=== PATIENT | male | born 1940 | race Caucasian/White ===

== ENCOUNTER → 2017-05-10 | Outpatient (CLI) | payer MEDICARE, OTHER ==
[2016-02-22 17:20] VITALS: BP 126/52
[~2017-05-10] MED LIST: AMIO200T2 PO; ASPI-630 PO; ATOR20TA58 PO; CARV6.252 PO; CLOP75TA PO; FURO40TA4 PO; GLIM2TAB2 PO; INFL100V IV; LOSA25TA4 PO; MULT1CAP15 PO; PRED1TAB3 PO; PRED5TAB PO; TICA90TA PO
--- NOTE | 2017-05-10 13:21 | CARD ---
APPROVED REPORT EXAM: Two-dimensional and M-mode echocardiogram with Doppler and color Doppler. Other Information Quality : Average Rhythm : NSR INDICATION Cardiomyopathy 2D DIMENSIONS RVDd3.5 (2.9-3.5cm)Left Atrium(2D)3.9 (1.6-4.0cm) IVSd1.1 (0.7-1.1cm)Aortic Root(2D)3.0 (2.0-3.7cm) LVDd4.1 (3.9-5.9cm)LVOT Diameter2.2 (1.8-2.4cm) PWd1.1 (0.7-1.1cm)LVDs3.5 (2.5-4.0cm) FS (%) 18.2 %SV23.9 ml LVEF(%)35.5 (>50%) Aortic Valve AoV Peak José Manuel.108.5cm/sAoV VTI23.1cm AO Peak GR.4.7mmHgLVOT Peak José Manuel.69.4cm/s LVOT VTI 16.17cmAO Mean GR.3mmHg EDILBERTO (VMAX)2.73kd3DPA (VTI)2.77cm2 AI P 1/2 Xssr090zi Mitral Valve MV E Jhemraon84.9cm/sMV DECEL LBIN967fl MV A Ivucuwny79.8cm/sMV E Mean Gr.1mmHg MV QQI596nnE/A Ratio0.5 MV A Bqdkwbky298flAWQ (PHT)2.73cm2 TDI E/Lateral E'6.6E/Medial E'7.5 Pulmonary Valve PV Peak Hbcrlfef146.2cm/sPV Peak Grad.4mmHg RVOT VTI16.9cm Tricuspid Valve TR P. Wtwzfnog945yd/sRAP WILFUJUN6giFl TR Peak Gr.93kyQuAGFY72gaNz LEFT VENTRICLE The left ventricle is normal size. There is normal left ventricular wall thickness. Left ventricle sy stolic function is moderately impaired. The Ejection Fraction is 35-40%. The septal motion is consist ent with prior CABG. Moderate hypokinesis of the basal to mid inferior wall, mid to distal anterior w all and apex. The lateral wall has normal motion. Tissue Doppler imaging reveals mild left ventricula r diastolic dysfunction. There is no ventricular septal defect visualized. RIGHT VENTRICLE The right ventricle is normal size. The right ventricular systolic function is normal. ATRIA The left atrium size is normal. The right atrium size is normal. The interatrial septum is intact wit h no evidence for an atrial septal defect or patent foramen ovale as noted on 2-D or Doppler imaging. AORTIC VALVE The aortic valve is moderately sclerotic. The aortic valve is trileaflet. Doppler and Color Flow reve aled trace to mild aortic regurgitation. There is no significant aortic valvular stenosis. MITRAL VALVE Mitral annular calcification is mild. There is no mitral valve stenosis. Doppler and Color Flow revea led no mitral valve regurgitation noted. TRICUSPID VALVE The tricuspid valve is normal in structure and function. Doppler and Color Flow revealed trace tricus pid regurgitation. The PA pressure was estimated at 22 mmHg. There is no tricuspid valve stenosis. PULMONIC VALVE The pulmonic valve is not well visualized. Doppler and Color Flow revealed no pulmonic valvular regur gitation. There is no pulmonic valvular stenosis. GREAT VESSELS The aortic root is normal in size. Normal pulmonary venous flow (Doppler). The IVC was not well visua lized. PERICARDIAL EFFUSION There is no evidence of significant pericardial effusion. Critical Notification Critical Value: No <Conclusion> Left ventricle systolic function is moderately impaired. The Ejection Fraction is 35-40%. The septal motion is consistent with prior CABG. Moderate hypokinesis of the basal to mid inferior wa ll, mid to distal anterior wall and apex. The lateral wall has normal motion.
== END | disposition home or self-care (01) ==
LOC: ECHO 09:28
PROVIDERS: ATTEND Internal Medicine Cardiovascular Disease
DX: I08.2 Rheumatic disorders of both aortic and tricuspid valves (principal)
CPT/HCPCS: 93306

== ENCOUNTER → 2018-03-08 | Outpatient (CLI) | payer MEDICARE, OTHER | END | disposition home or self-care (01) | LOC: ECHO 09:57 | DX: I25.10 Atherosclerotic heart disease of native coronary artery without angina pectoris (principal); I34.0 Nonrheumatic mitral (valve) insufficiency; I51.7 Cardiomegaly | CPT/HCPCS: 93306 ==

== ENCOUNTER → 2018-03-28 | Outpatient (CLI) | payer MEDICARE, OTHER ==
[2018-03-28] MEDS: IOHEXOL 300 MG/ML 100ML VIAL. IV (08:49)
== END | disposition home or self-care (01) ==
LOC: CT 07:33
DX: I71.4 Abdominal aortic aneurysm, without rupture (principal); I70.202 Unspecified atherosclerosis of native arteries of extremities, left leg; I25.10 Atherosclerotic heart disease of native coronary artery without angina pectoris; E11.9 Type 2 diabetes mellitus without complications; I10 Essential (primary) hypertension
CPT/HCPCS: 71275; 74174; 93017; Q9967

== ENCOUNTER → 2019-03-18 | Outpatient (CLI) | payer MEDICARE, OTHER ==
[2016-02-22 17:20] VITALS: BP 126/52
[~2019-03-18] MED LIST changes: -AMIO200T2 PO; +AMIO200T4 PO; +CARV6.2511 PO; -CARV6.252 PO; -LOSA25TA4 PO; +LOSA25TA54 PO
--- NOTE | 2019-03-18 10:30 | CARD ---
MR#: [id number] Date of Study: 03/18/2019 Ordering Physician: ENA VENTURA, Referring Physician: ENA VENTURA, Tech: Mine Carlson APPROVED REPORT EXAM: Two-dimensional and M-mode echocardiogram with Doppler and color Doppler. Other Information Quality : FairHR: 63bpm INDICATION CAD Surgery/Intervention CABG: RISK FACTORS Hyperlipidemia Diabetes Smoking Previous smoker 2D DIMENSIONS RVDd4.4 (2.9-3.5cm)Left Atrium(2D)4.2 (1.6-4.0cm) IVSd1.5 (0.7-1.1cm)Aortic Root(2D)3.7 (2.0-3.7cm) LVDd4.3 (3.9-5.9cm)LVOT Diameter2.2 (1.8-2.4cm) PWd1.3 (0.7-1.1cm)LVDs3.2 (2.5-4.0cm) FS (%) 25.7 %SV43.3 ml LVEF(%)50.8 (>50%) Aortic Valve AoV Peak José Manuel.147.1cm/sAoV VTI32.5cm AO Peak GR.8.7mmHgLVOT Peak José Manuel.105.2cm/s LVOT VTI 24.77cmAO Mean GR.4mmHg EDILBERTO (VMAX)2.14ft2LYF (VTI)2.96cm2 AI P 1/2 Ejfu662nq Mitral Valve MV E Bibgytrn66.8cm/sMV DECEL AZAN010zz MV A Zsvnxped853.1cm/sMV PIS80pq E/A Ratio0.9MVA (PHT)3.66cm2 TDI E/Lateral E'9.1E/Medial E'14.9 Pulmonary Valve PV Peak Rythqohp787.5cm/sPV Peak Grad.5mmHg Tricuspid Valve TR P. Ccqbvgqm322vi/sRAP HICGIDEQ0gqOp TR Peak Gr.50vzEsNYHF29yuLh Pulmonary Vein S1 Ptxdhmio40.6cm/sD2 Wgttotif13.8cm/s PVa ueadfwky481hxyr LEFT VENTRICLE The left ventricle is normal size. There is mild to moderate concentric left ventricular hypertrophy. Basal inferior wall hypokinesis. The ejection fraction is estimated at 55%. Transmitral Doppler flow pattern is Grade I-abnormal relaxation pattern. RIGHT VENTRICLE The right ventricle is normal size. There is normal right ventricular wall thickness. The right ventr icular systolic function is normal. ATRIA The left atrium is mildly dilated. The right atrium size is normal. The interatrial septum is intact with no evidence for an atrial septal defect or patent foramen ovale as noted on 2-D or Doppler imagi ng. AORTIC VALVE The aortic valve is not well visualized. Doppler and Color Flow revealed mild aortic regurgitation. T here is no significant aortic valvular stenosis. MITRAL VALVE The mitral valve is thickened but opens well. There is no evidence of mitral valve prolapse. There is no mitral valve stenosis. Doppler and Color-flow revealed trace to mild mitral regurgitation. TRICUSPID VALVE The tricuspid valve is not well visualized. Doppler and Color Flow revealed trace tricuspid regurgita tion with an estimated PAP of 25 mmHg. There is no tricuspid valve stenosis. PULMONIC VALVE The pulmonic valve is not well visualized. Doppler and Color Flow revealed no pulmonic valvular regur gitation. GREAT VESSELS The aortic root is normal in size. The IVC is normal in size and collapses >50% with inspiration. PERICARDIAL EFFUSION There is no evidence of significant pericardial effusion. Critical Notification Critical Value: No <Conclusion> Basal inferior wall hypokinesis. The ejection fraction is estimated at 55%. Mild aortic regurgitation. Trace to mild mitral regurgitation. Trace tricuspid regurgitation with an estimated PAP of 25 mmHg. There is no evidence of significant pericardial effusion. Signed by : Flavio Howard, Electronically Approved : 03/18/2019 10:29:56
== END | disposition home or self-care (01) ==
LOC: ECHO 08:40
PROVIDERS: ATTEND Internal Medicine Cardiovascular Disease
DX: I08.0 Rheumatic disorders of both mitral and aortic valves (principal); I25.10 Atherosclerotic heart disease of native coronary artery without angina pectoris; E78.5 Hyperlipidemia, unspecified; E11.9 Type 2 diabetes mellitus without complications; Z87.891 Personal history of nicotine dependence
CPT/HCPCS: 93306

== ENCOUNTER → 2019-04-29 | Outpatient (CLI) | payer MEDICARE, OTHER ==
[2016-02-22 17:20] VITALS: BP 126/52
--- NOTE | 2019-04-29 13:34 | RAD ---
CT of the chest without contrast, 04/29/2019: HISTORY: Cough Noncontrast scans were obtained as requested and compared to a study from 03/28/2018. There are moderate scattered reticular opacities in the periphery of both lungs similar to that seen on the previous study. The findings suggest fibrosis. No pulmonary mass or dense consolidation is seen. There is coarse calcific pleural plaquing posteromedially on the right. A couple of other tiny scattered calcified pleural plaques are seen bilaterally. There is no evidence of pleural fluid. There has been a previous median sternotomy. There is moderate calcific plaquing of the thoracic aorta and its branches. There is no evidence of aortic aneurysm. There are moderate scattered coronary artery calcifications. The heart is at the upper limits of normal in size. There is abundant epicardial fat. There are small scattered mediastinal lymph nodes without evidence of pathologic enlargement. IMPRESSION: 1. Moderate calcific plaquing of the aorta and coronary arteries. 2. Calcific pleural plaquing raising the possibility of previous asbestos exposure. 3. Ongoing peripheral predominantly reticular opacities suggesting fibrosis. PQRS Compliance Statement: One or more of the following individualized dose reduction techniques were utilized for this examination: 1. Automated exposure control 2. Adjustment of the mA and/or kV according to patient size 3. Use of iterative reconstruction technique Electronically signed by: Everardo Walter MD (04/29/2019 1:31 PM) [facility]
== END | disposition home or self-care (01) ==
LOC: CT 09:58
PROVIDERS: ATTEND Internal Medicine Cardiovascular Disease
DX: J92.9 Pleural plaque without asbestos (principal); I70.0 Atherosclerosis of aorta; I25.10 Atherosclerotic heart disease of native coronary artery without angina pectoris; R59.0 Localized enlarged lymph nodes
CPT/HCPCS: 71250

== ENCOUNTER → 2020-05-04 | Outpatient (CLI) | payer MEDICARE, OTHER ==
[2016-02-22 17:20] VITALS: BP 126/52
[~2020-05-04] MED LIST changes: -GLIM2TAB2 PO; +GLIM2TAB7 PO
--- NOTE | 2020-05-04 16:49 | CARD ---
MR#: [id number] Date of Study: 05/04/2020 Ordering Physician: ENA BLANCO, Referring Physician: ENA BLANCO, Tech: Mine Carlson APPROVED REPORT EXAM: Two-dimensional and M-mode echocardiogram with Doppler and color Doppler. Other Information Quality : FairHR: 67bpm Technically limited study due to body habitus. INDICATION Cardiac Disease: CAD Surgery/Intervention CABG: Date: 2014 Stents (2) 2016 RISK FACTORS Hypertension Diabetes 2D DIMENSIONS Left Atrium(2D)4.7 (1.6-4.0cm)IVSd1.7 (0.7-1.1cm) Aortic Root(2D)3.6 (2.0-3.7cm)LVDd5.1 (3.9-5.9cm) LVOT Diameter1.9 (1.8-2.4cm)PWd1.2 (0.7-1.1cm) LVDs3.3 (2.5-4.0cm)FS (%) 35.0 % SV78.4 mlLVEF(%)63.9 (>50%) Aortic Valve AoV Peak José Manuel.164.6cm/sAoV VTI35.5cm AO Peak GR.10.8mmHgLVOT Peak José Manuel.95.3cm/s LVOT VTI 18.13cmAO Mean GR.5mmHg EDILBERTO (VMAX)1.09xk4MJS (VTI)1.46cm2 AI P 1/2 Yvaf033yf Mitral Valve MV E Bglphlou47.4cm/sMV E Peak Gr.121mmHg MV DECEL XPWC608thZM A Ygklpnwf791.8cm/s MV E Mean Gr.3mmHgMV QJN01mc E/A Ratio0.8MVA (PHT)2.74cm2 TDI E/Lateral E'11.9E/Medial E'20.1 Pulmonary Valve PV Peak Dqkanjdh13.1cm/sPV Peak Grad.4mmHg Tricuspid Valve TR P. Flnrdqvd367xw/sRAP ZWSSPNED7ktBg TR Peak Gr.74rlUqAIGF78ljUz Pulmonary Vein S1 Pdnfphoj82.0cm/sD2 Iijyshlt81.1cm/s PVa dtzkpyuy757bowo LEFT VENTRICLE The left ventricle is normal size. There is mild to moderate concentric left ventricular hypertrophy. The left ventricular systolic function is mildly decreased. The Ejection Fraction is 45-50%. There i s mild global hypokinesis. Septal motion suggestive of conduction defect. Transmitral Doppler flow pa ttern is Grade I-abnormal relaxation pattern. RIGHT VENTRICLE The right ventricle is normal size. There is normal right ventricular wall thickness. The right ventr icular systolic function is normal. ATRIA The left atrium is mildly dilated. The right atrium size is normal. The interatrial septum is intact with no evidence for an atrial septal defect or patent foramen ovale as noted on 2-D or Doppler imagi ng. AORTIC VALVE The aortic valve is calcified and not well visualized. Doppler and Color Flow revealed mild aortic re gurgitation. There is no significant aortic valvular stenosis. MITRAL VALVE The mitral valve is thickened but opens well. There is no evidence of mitral valve prolapse. There is no mitral valve stenosis. Doppler and Color-flow revealed trace mitral regurgitation. TRICUSPID VALVE The tricuspid valve is normal in structure and function. Doppler and Color Flow revealed trace tricus pid regurgitation with an estimated PAP of 28 mmHg. There is no tricuspid valve stenosis. PULMONIC VALVE The pulmonic valve is not well visualized. Doppler and Color Flow revealed no pulmonic valvular regur gitation. There is no pulmonic valvular stenosis. GREAT VESSELS The aortic root is normal in size. The IVC is normal in size and collapses >50% with inspiration. PERICARDIAL EFFUSION There is no evidence of significant pericardial effusion. Critical Notification Critical Value: No <Conclusion> The left ventricular systolic function is mildly decreased. The Ejection Fraction is 45-50%. There is mild global hypokinesis. Septal motion suggestive of conduction defect. Doppler and Color Flow revealed mild aortic regurgitation. Doppler and Color Flow revealed trace tricuspid regurgitation with an estimated PAP of 28 mmHg. Signed by : Ena Blanco, Electronically Approved : 05/04/2020 16:49:13
== END | disposition home or self-care (01) ==
LOC: ECHO 09:30
PROVIDERS: ATTEND Internal Medicine Cardiovascular Disease
DX: I11.9 Hypertensive heart disease without heart failure (principal); I35.1 Nonrheumatic aortic (valve) insufficiency; I70.0 Atherosclerosis of aorta; I25.10 Atherosclerotic heart disease of native coronary artery without angina pectoris; E11.8 Type 2 diabetes mellitus with unspecified complications
CPT/HCPCS: 93306

== ENCOUNTER → 2021-05-18 | Outpatient (CLI) | payer MEDICARE, OTHER ==
[2016-02-22 17:20] VITALS: BP 126/52
[~2021-05-18] MED LIST changes: -AMIO200T4 PO; +AMIO200T6 PO; +REGADENOSON 0.4 MG/5 ML DISP.SYRIN. IV ONE
--- NOTE | 2021-05-19 11:11 | RAD ---
MR#: [id number] Date of Study: 05/18/2021 Ordering Physician: ENA BLANCO, Referring Physician: JAYLON PRITCHETT Tech: Aravind Redding RT (R) (N) APPROVED REPORT Test Type: Pharmacological Stress Nurse/Tech: Norma Boss RN Test Indications: CAD Cardiac History: HTN, Cardiac stents, 2015 CABG x3, See EMR. Medications: See EMR. Medical History: DM, X-Smoker=Quit 20yrs, Prostate CA w/ chemo, See EMR. Resting ECG: SR Resting Heart Rate: 71 bpm Resting Blood Pressure: 141/86mmHg Pretest Chest Pain: No chest pain Nurse/Tech Notes Lungs CTA, Heart tones regular. Consent: The procedure was explained to the patient in lay terms. Informed consent was witnessed. Allan eout was entered into [employer]. History and Stress Test performed by TAMANNA [facility]. Details Pharmacologic stress testing was performed using 0.4mg per 5ml of regadenoson given intravenously ove r 7-10 seconds. Stress Symptoms No chest pain or symptoms. POST EXERCISE Reason for Termination: Infusion complete Max HR: 93 bpm Max Blood Pressure: 119/66mmHg Blood Pressure response to exercise: Normal blood pressure response during stress. Heart Rate response to exercise: WNL Chest Pain: No. Arrhythmia: No. ST Change: No. INTERPRETATION Stress EKG Conclusion: No evidence of stress induced EKG changes. Imaging Protocol IMAGE PROTOCOL: Rest Tc-99m/stress Tc-99m 1 day Rest: Stress: Viability: Radiopharm.Tc99m ZkwsjpeqrOz30p Sestamibi Dose10.5mCi 30mCi Duration 15min. 15min. Img Date 05/18/2021 05/18/2021 Inj-Img Cvuj88qnf. 60min. Rest Admin Site:IV - Right AntecubitalAdministrator:Brooke Brunner RT (R)(N) Stress Admin Site: IV - Right AntecubitalAdministrator: TAMANNA Lucero STRESS DATA End Diast. Vol.151.0mlAv. Heart Rate75.0bpm End Syst. Vol.85.0mlCO Index BSA0.0L/min Myocardial Kein370.0gEject. Objailqg92.0% Stress Rates Pk. Fill Rate0.32EDV/secLVtime Pk. Fill 189.99msec Pk. Empty Rate2.57ESV/secLVtime Pk. Czazd656.22msec / Pk. Fill0.35EDV/sec Stress Scores Regional WT1.00Summed WT11.00 Regional WM0.00Summed WM23.00 LV Perfusion There is a moderate to large sized mid to distal anterior and apical fixed perfusion defect consisten t with prior infarct in the LAD territory There is a small to moderate sized basal to mid inferior wall fixed defect consistent with prior infa rct. Wall Motion Moderate LV dysfunction with ejection fraction of 44%. LV Perf. Quant 17 Seg. SSS20.00 17 Seg. SRS15.00 17 Seg. SDS6.00 Stress Defect Extent (% LAD)51.90Rest Defect Extent (% LAD)47.50Rev. Defect Extent (% LAD)20.00 Stress Defect Extent (% LCX) 65.00Rest Defect Extent (% LCX)47.50Rev. Defect Extent (% LCX)13.80 Stress Defect Extent (% RCA)7.80Rest Defect Extent (% RCA)17.80Rev. Defect Extent (% RCA)0.00 Stress Defect Extent (% VIVEK)43.00Rest Defect Extent (% VIVEK)37.80Rev. Defect Extent (% VIVEK)13.70 Other Information Quality:Average Risk Assessment: Moderate Risk Conclusion 1. No evidence of stress-induced EKG changes. 2. Fixed anterior wall and inferior wall defects as noted above. No obvious ischemia 3. Moderate LV dysfunction ejection fraction of 44% 4. Moderate risk study. Signed by : Ena Blanco, Electronically Approved : 05/19/2021 11:11:01
== END ==
LOC: NM 07:39
PROVIDERS: ATTEND Internal Medicine Cardiovascular Disease
DX: I25.10 Atherosclerotic heart disease of native coronary artery without angina pectoris (principal); I51.9 Heart disease, unspecified
CPT/HCPCS: 78452; 93017; A9500; J2785